=== PATIENT | female | born 1985 | race Caucasian/White ===

== ENCOUNTER 2019-09-27 11:12 | Emergency (ER) | payer SELFPAY ==
[2019-09-27 11:22] VITALS: BP 117/92; PULSE 91; RESP 20; TEMP 36.8; O2SAT 99; BMI 22.3
[2019-09-27 11:29] VITALS: BP 111/86; PULSE 90; RESP 17; O2SAT 98
--- NOTE | 2019-09-27 11:29 | PC.NURSE ---
Patient reports that she has been sick for 7 days. Patient states she has been vomiting, diarrhea, sinus pain, cough, weak, chills, hot flashes, and body aches. Patient reports that every time she eats she throws up. Patient states I think I had a seizure. Patient reports that she lost control of her muscles during this possible seizure.
--- NOTE | 2019-09-27 11:35 | XRR_ITS ---
PROCEDURE INFORMATION: Exam: XR Chest, 1 View Exam date and time: 09/27/2019 11:36 AM Age: 33 years old Clinical indication: Cough; Additional info: Cough/congestion TECHNIQUE: Imaging protocol: XR of the chest Views: 1 view. COMPARISON: CR Chest 2 views* [id number] 04/07/2019 11:20 PM FINDINGS: Lungs: Unremarkable. No consolidation. Pleural space: Unremarkable. No pleural effusion. No pneumothorax. Heart/Mediastinum: Unremarkable. No cardiomegaly. Bones/joints: Unremarkable. XR/XR chest 1V portable [id number] IMPRESSION: No acute findings.
[2019-09-27] MEDS: sodium chloride 0.9% 1,000 ML 999 ML IV (11:57)
[2019-09-27 12:06] LABS: Basophils # 0.1 10^3/uL (0.0-0.1); Basophils % 0.5 %; Eosinophils # 0.1 10^3/uL (0.0-0.8); Eosinophils % 0.8 %; Hematocrit 45.1 % (37.0-47.0); Hemoglobin 14.6 g/dL (11.5-15.3); Lymphocytes # 3.2 10^3/uL (0.8-4.8); Lymphocytes % 27.6 %; Mean Corpuscular HGB Conc 32.4 g/dL (30.0-36.0); Mean Corpuscular Hemoglobin 30.5 pg (28.0-34.0); Mean Corpuscular Volume 94.2 fL (81-99); Mean Platelet Volume 9.8 fL (7.4-10.4); Monocytes # 0.6 10^3/uL (0.2-0.9); Monocytes % 5.4 %; Neutrophils # 7.6 10^3/uL (1.8-7.7); Neutrophils % 65.4 %; Nucleated Red Blood Cells % 0 %; Platelet Count 264 10^3/cmm (130-400); Red Blood Count 4.79 10^6/uL (4.1-5.3); Red Cell Distribution Width 13.3 % (12.1-15.1); White Blood Count 11.6 10^3/uL (4.0-10.0)
[2019-09-27] MEDS: ondansetron 2 mg/ML SDV 2 mL 4 MG IVP (12:15)
[2019-09-27 12:21] LABS: Alanine Aminotransferase 13 U/L (0-33); Albumin Level 4.4 g/dL (3.5-5.2); Alkaline Phosphatase 61 IU/L (35-105); Aspartate Amino Transferase 19 U/L (0-32); Blood Urea Nitrogen 13 mg/dL (6-20); Calcium 10.3 mg/dL (8.5-10.5); Carbon Dioxide 25 mmol/L (22-29); Chloride 100 mmol/L (98-107); Globulin 3.4 g/dL (1.3-4.6); Glomerular Filtration Rate 142.1 mL/min (90-130); Glucose 103 mg/dL (74-109); Sodium 136 mmol/L (136-145); Total Bilirubin 0.2 mg/dL (0.15-1.2); Total Protein 7.8 g/dL (6.6-8.7)
--- NOTE | 2019-09-27 12:23 | W.ED.GENADLT ---
HPI - General Adult General: Chief complaint: General Medical Stated complaint: N/V/D-thinks she is having seizures Time Seen by Provider: 09/27/19 11:20 Source: patient Mode of arrival: ambulatory Limitations: no limitations History of Present Illness: HPI narrative: Patient is a 33-year-old female who presents to ED today for complaints of subjective fevers, chills, sore throat, sinus pain/pressure, productive cough, body aches, nausea with vomiting, and diarrhea. Patient states she is concerned for possible dehydration. Patient states over the past 2 days she has seemed to slightly improve however seems to vomit with anything she eats. She denies sick contacts. Denies blood in her vomit or stool. She denies abdominal pain. Onset (ago): day(s) Exacerbating factors: none Associated symptoms: Reports nausea and vomiting (2-3x daily; mainly dry heaving); Deny chest pain, dyspnea, headache(s), rash, palpitations or syncope Review of Systems Const: Reports: fever, chills, body aches and fatigue Eyes: Denies: change in vision, blurry vision, photophobia, eye discomfort or eye discharge ENMT: Reports: throat pain, painful swallowing, nasal congestion and facial/sinus pain; Denies: enlarged tonsils, swelling of lips/tongue, oral sores/lesions, ear pain, ear discharge, nasal discharge or post nasal drip Card: Denies: chest pain, palpitations, irregular heart rhythm, edema, lightheadedness, syncope, pre-syncope or shortness of breath when lying down Resp: Reports: productive cough and chest congestion; Denies: shortness of breath, wheezing, pain on inspiration or coughing up blood GI: Reports: nausea, vomiting (2-3x daily; mainly dry heaving) and diarrhea (2-3x daily); Denies: abdominal pain, vomiting blood, coffee grounds in vomit, difficulty swallowing, heartburn/indigestion, feeling full early, constipation, fecal incontinence, painful bowel movements, change in stool character, blood in stool or white/light colored stool : Denies: flank pain, difficulty urinating, painful urination, urinary frequency or urinary urgency Musc: Denies: neck pain or back pain Skin/Breast: Denies: rash Neuro: Denies: headache, numbness in extremities, weakness in extremities or changes in sensation All/Imm: Denies: facial swelling or seasonal allergies PFSH ED PFSH: Statuses (acute, chronic, etc) shown below reflect problem list status as previously entered and may not be historically accurate Social History Smoking and tobacco status: current every day smoker Female Reproductive History: Date of last menstrual period: 09/27/19 Physical Exam Const: COMMON NORMALS: no apparent distress, average body habitus, oriented x3, no limitations, alert and well nourished GENERAL APPEARANCE: cooperative ORIENTATION/CONSCIOUSNESS: Yes oriented to person, Yes oriented to place and Yes oriented to time HENMT: COMMON NORMALS: normocephalic, head/scalp atraumatic, external ears normal, EAC's normal, TM's normal bilaterally and external nose normal HEAD & SCALP: normocephalic and atraumatic FACE & SINUS: normal facial exam NOSE: external nose normal EXTERNAL EAR: Yes external ears normal EXTERNAL AUDITORY CANAL: EAC's normal TYMPANIC MEMBRANE: TM's normal bilaterally MOUTH: oral and palatal mucosa normal THROAT: posterior oropharynx normal, tonsils normal and uvula midline Eye: COMMON NORMALS: PERRL and EOMs intact bilaterally PUPIL: Yes PERRL Neck/C-Spine: COMMON NORMALS: full ROM, no lymphadenopathy, supple and no meningeal signs Chest: COMMONS NORMALS: inspection of chest normal Resp: COMMON NORMALS: normal respiratory effort and clear to auscultation bilaterally EFFORT & INSPECTION: Yes able to speak in complete sentences AUSCULTATION: clear to auscultation bilaterally Cardio: COMMON NORMALS: regular rate and regular rhythm RATE: regular rate RHYTHM: regular rhythm GI: COMMON NORMALS: normal to inspection, nondistended, normoactive bowel sounds, soft to palpation, non-tender, no hepatosplenomegaly and no masses PALPATION: Yes soft and Yes no hepatosplenomegaly : COMMON NORMALS: Yes no CVA tenderness BLADDER/KIDNEY EXAM: Yes no CVA tenderness Back/Pelvis: COMMON NORMALS: no CVA tenderness and thoracic and lumbar spine normal to inspection Extremity: COMMON NORMALS: normal to inspection Neuro: ASA COMA SCALE: document GCS findings Mcclure coma scale eye opening: Spontaneous Asa coma scale verbal response: Orientated Asa coma scale motor response: Obey commands Mcclure coma scale total score: 15 COMMON NORMALS: oriented x3, CN's II-XII intact bilaterally, moves all extremities, no focal motor deficits and no sensory deficits noted SENSORIUM/ORIENTATION: Yes alert, Yes oriented to person, Yes oriented to place and Yes oriented to time MENINGEAL SIGNS: Yes no meningeal signs Skin: COMMON NORMALS: no rashes or lesions noted GENERAL SKIN EXAM: no rashes or lesions noted Course Vital Signs: Vital signs: Vital Signs Temperature 98.3 F 09/27/19 11:22 Pulse Rate 90 09/27/19 11:29 Respiratory Rate 17 09/27/19 11:29 Blood Pressure 111/86 09/27/19 11:29 Pulse Oximetry 98 09/27/19 11:29 [facility] - General Adult Lab Data: Labs: Lab Results 09/27/19 09/27/19 09/27/19 Range/Units 11:49 11:57 11:57 WBC 11.6 H (4.0-10.0) 10^3/ uL RBC 4.79 (4.1-5.3) 10^6/u L Hgb 14.6 (11.5-15.3) g/dL Hct 45.1 (37.0-47.0) % MCV 94.2 (81-99) fL MCH 30.5 (28.0-34.0) pg MCHC 32.4 (30.0-36.0) g/dL RDW 13.3 (12.1-15.1) % Plt Count 264 (130-400) 10^3/c mm MPV 9.8 (7.4-10.4) fL Neut % (Auto) 65.4 % Lymph % (Auto) 27.6 % [place] % (Auto) 5.4 % Eos % (Auto) 0.8 % Baso % (Auto) 0.5 % Neut # (Auto) 7.6 (1.8-7.7) 10^3/u L Lymph # (Auto) 3.2 (0.8-4.8) 10^3/u L [place] # (Auto) 0.6 (0.2-0.9) 10^3/u L Eos # (Auto) 0.1 (0.0-0.8) 10^3/u L Baso # (Auto) 0.1 (0.0-0.1) 10^3/u L Nucleated RBC % (a uto) 0 % Nucleated RBCs # 0.0 /100WBC Sodium 136 (136-145) mmol/L Potassium 4.0 (3.5-5.1) mmol/L Chloride 100 (98-107) mmol/L Carbon Dioxide 25 (22-29) mmol/L Anion Gap 15.0 (5-19) BUN 13 (6-20) mg/dL Creatinine 0.5 (0.5-0.9) mg/dL GFR Calculation 142.1 H (90-130) mL/min Glucose 103 (74-109) mg/dL Calcium 10.3 (8.5-10.5) mg/dL Total Bilirubin 0.2 (0.15-1.2) mg/dL AST 19 (0-32) U/L ALT 13 (0-33) U/L Alkaline Phosphata se 61 (35-105) IU/L Total Protein 7.8 (6.6-8.7) g/dL Albumin 4.4 (3.5-5.2) g/dL Globulin 3.4 (1.3-4.6) g/dL HCG, Qual (Negative) Influenza Type A A g Negative (Negative) POC Influenza B Ag Negative (Negative) 09/27/19 Range/Units 11:57 WBC (4.0-10.0) 10^3/ uL RBC (4.1-5.3) 10^6/u L Hgb (11.5-15.3) g/dL Hct (37.0-47.0) % MCV (81-99) fL MCH (28.0-34.0) pg MCHC (30.0-36.0) g/dL RDW (12.1-15.1) % Plt Count (130-400) 10^3/c mm MPV (7.4-10.4) fL Neut % (Auto) % Lymph % (Auto) % [place] % (Auto) % Eos % (Auto) % Baso % (Auto) % Neut # (Auto) (1.8-7.7) 10^3/u L Lymph # (Auto) (0.8-4.8) 10^3/u L [place] # (Auto) (0.2-0.9) 10^3/u L Eos # (Auto) (0.0-0.8) 10^3/u L Baso # (Auto) (0.0-0.1) 10^3/u L Nucleated RBC % (a uto) % Nucleated RBCs # /100WBC Sodium (136-145) mmol/L Potassium (3.5-5.1) mmol/L Chloride (98-107) mmol/L Carbon Dioxide (22-29) mmol/L Anion Gap (5-19) BUN (6-20) mg/dL Creatinine (0.5-0.9) mg/dL GFR Calculation (90-130) mL/min Glucose (74-109) mg/dL Calcium (8.5-10.5) mg/dL Total Bilirubin (0.15-1.2) mg/dL AST (0-32) U/L ALT (0-33) U/L Alkaline Phosphata se (35-105) IU/L Total Protein (6.6-8.7) g/dL Albumin (3.5-5.2) g/dL Globulin (1.3-4.6) g/dL HCG, Qual Negative (Negative) Influenza Type A A g (Negative) POC Influenza B Ag (Negative) Imaging Data^: CXR: Radiologist's impression: [address] [address] XRay Report Signed Patient: Susy Pierre Unit #: [id number] : [id number] Age/Sex: 33 / F ADM Date: 09/27/19 Loc: ER Room/Bed: Attending Dr: Ordering Provider/Ordering MD: Teetee Berman Date of Service: 09/27/19 Procedure(s): XR chest 1V portable [id number] Accession Number(s): [id number] Report Number: [id number] PROCEDURE INFORMATION: Exam: XR Chest, 1 View Exam date and time: 09/27/2019 11:36 AM Age: 33 years old Clinical indication: Cough; Additional info: Cough/congestion TECHNIQUE: Imaging protocol: XR of the chest Views: 1 view. COMPARISON: CR Chest 2 views* [id number] 04/07/2019 11:20 PM FINDINGS: Lungs: Unremarkable. No consolidation. Pleural space: Unremarkable. No pleural effusion. No pneumothorax. Heart/Mediastinum: Unremarkable. No cardiomegaly. Bones/joints: Unremarkable. XR/XR chest 1V portable [id number] IMPRESSION: No acute findings. Dictated By: Adriel Hong Signed By: Adriel Hong Signed Date/Time: 09/27/191204 DD/ 05 Discharge Plan Discharge Patient Disposition: Home, Self-Care Clinical Impression: Viral illness Condition: Stable Prescriptions: New Zofran 4 mg tablet 4 mg PO Q6H PRN (Reason: nausea and vomiting) Qty: 14 RF: 0 No Action Multiple Vitamins Tablet 1 tab PO DAILY RF: 0 Discharge Orders: Discharge Order (Routine); Ordered 09/27/19 Ordered By: Teetee Berman Referrals: Jama Gamble MD [Family Provider] - Discharge Diet: Advance as tolerated Discharge Activity: Increase activity as tolerated Activity Restrictions/Additional Instructions: Follow up with primary care if symptoms continue past another 3-5 days. Coding Level of Care Code ED Home Care Scheduler for Fernanda Poon
[2019-09-27 12:24] LABS: HCG, Serum Qual Negative (Negative)
[2019-09-27 12:38] LABS: Influenza A by IFA Negative (Negative)
[2019-09-27 12:39] LABS: Influenza B by IFA Negative (Negative)
[2019-09-27 13:06] VITALS: BP 113/84; PULSE 82; RESP 18; O2SAT 98
== END 2019-09-27 13:11 | disposition home or self-care (01) ==
PROVIDERS: Emergency Provider Physician Assistant; Family Provider Family Medicine
DX: B34.9 Viral infection, unspecified (principal); F17.210 Nicotine dependence, cigarettes, uncomplicated
CPT/HCPCS: 71045; 80053; 84703; 85025; 87804; 96360; 96361; 96374; 99282; 99283; J2405; J7030

== ENCOUNTER 2019-11-14 11:03 | Emergency (ER) | payer SELFPAY ==
[2019-11-14 11:04] VITALS: BP 143/81; PULSE 71; RESP 17; TEMP 36.9; O2SAT 97; BMI 24.0
--- NOTE | 2019-11-14 11:11 | W.ED.ABDPA2 ---
HPI - Abdominal Pain General: Chief Complaint: Abdominal Pain Stated Complaint: swelling in the abdomen Time Seen by Provider: 11/14/19 11:10 Source: patient Mode of arrival: ambulatory Limitations: no limitations History of Present Illness: HPI narrative: Patient comes in with complaints of bloating and movement in her abdomen. Patient reports that movement is in her upper abdomen and it feels like rolling movement. Patient has a history of a tubal ligation. Patient reports some mild bowel tenderness. Patient appears well. Patient appears in no pain. MD elicited complaint: abdominal pain Associated Symptoms: Reports nausea Related Data: Date of Last Menstrual Period: 09/27/19 Review of Systems General: Reports: 10 or more systems reviewed and unremarkable except in HPI and below GI: Reports: abdominal pain and nausea : Reports: irregular period PFSH ED PFSH: Social History Smoking and tobacco status: current every day smoker Female Reproductive History: Date of last menstrual period: 09/27/19 Physical Exam Const: COMMON NORMALS: no apparent distress and oriented x3 GENERAL APPEARANCE: cooperative HENMT: COMMON NORMALS: normocephalic, external ears normal, EAC's normal, TM's normal bilaterally and external nose normal HEAD & SCALP: normal to inspection and normocephalic FACE & SINUS: normal facial exam NOSE: external nose normal GENERAL EAR: hearing not grossly impaired EXTERNAL EAR: Yes external ears normal EXTERNAL AUDITORY CANAL: EAC's normal TYMPANIC MEMBRANE: TM's normal bilaterally MOUTH: oral and palatal mucosa normal THROAT: posterior oropharynx normal Eye: COMMON NORMALS: PERRL and EOMs intact bilaterally PUPIL: Yes PERRL Neck/C-Spine: COMMON NORMALS: full ROM and no lymphadenopathy Lymph: LYMPHATIC: no lymphedema noted Chest: COMMONS NORMALS: inspection of chest normal and palpation of chest normal Resp: COMMON NORMALS: normal respiratory effort and clear to auscultation bilaterally AUSCULTATION: clear to auscultation bilaterally Cardio: COMMON NORMALS: regular rate and regular rhythm RATE: regular rate RHYTHM: regular rhythm GI: COMMON NORMALS: normal to inspection, nondistended, normoactive bowel sounds and soft to palpation PALPATION: Yes soft, Yes tender (mild), No guarding and No rigid : COMMON NORMALS: Yes no CVA tenderness BLADDER/KIDNEY EXAM: Yes no CVA tenderness Back/Pelvis: COMMON NORMALS: no CVA tenderness and thoracic and lumbar spine normal to inspection Extremity: COMMON NORMALS: normal to inspection GENERAL: No edema Neuro: COMMON NORMALS: oriented x3, moves all extremities and no focal motor deficits Psych: COMMON NORMALS: mental status grossly normal and cooperative Skin: COMMON NORMALS: no rashes or lesions noted GENERAL SKIN EXAM: no rashes or lesions noted Course Vital Signs: Vital signs: Vital Signs Temperature 98.5 F 11/14/19 11:04 Pulse Rate 69 11/14/19 12:49 Respiratory Rate 17 11/14/19 11:04 Blood Pressure 111/77 11/14/19 12:49 Pulse Oximetry 99 11/14/19 12:49 MDM - Abdominal Pain MDM Narrative: Medical decision making narrative: Patient comes in today with some abdominal discomfort. On exam patient's abdomen is soft with some mild tenderness diffuse throughout the whole abdomen. Bowel sounds are present not hyperactive. Vital signs are normal. Skin is warm and dry and color is pink. Differential diagnosis includes constipation, ascites, hepatomegaly, gastroenteritis, colitis, . Laboratory values were normal. Patient was not . X-ray noted no significant abnormalities except a large amount of stool in the bowel. Reviewed exam with patient recommendations for treatment for constipation. Encourage plenty of fluids and follow-up as needed. Lab Data: Labs: Lab Results 11/14/19 11/14/19 11/14/19 Range/Units 11:33 11:33 11:33 WBC 9.3 (4.0-10.0) 10^3/ uL RBC 4.07 L (4.1-5.3) 10^6/u L Hgb 13.2 (11.5-15.3) g/dL Hct 40.1 (37.0-47.0) % MCV 98.5 (81-99) fL MCH 32.4 (28.0-34.0) pg MCHC 32.9 (30.0-36.0) g/dL RDW 14.8 (12.1-15.1) % Plt Count 253 (130-400) 10^3/c mm MPV 9.8 (7.4-10.4) fL Neut % (Auto) 62.5 % Lymph % (Auto) 27.5 % [place] % (Auto) 7.6 % Eos % (Auto) 1.7 % Baso % (Auto) 0.5 % Neut # (Auto) 5.8 (1.8-7.7) 10^3/u L Lymph # (Auto) 2.5 (0.8-4.8) 10^3/u L [place] # (Auto) 0.7 (0.2-0.9) 10^3/u L Eos # (Auto) 0.2 (0.0-0.8) 10^3/u L Baso # (Auto) 0.1 (0.0-0.1) 10^3/u L Nucleated RBC % (a uto) 0 % Nucleated RBCs # 0.0 /100WBC Sodium 141 (136-145) mmol/L Potassium 3.9 (3.5-5.1) mmol/L Chloride 105 (98-107) mmol/L Carbon Dioxide 23 (22-29) mmol/L Anion Gap 16.9 (5-19) BUN 5 L (6-20) mg/dL Creatinine 0.5 (0.5-0.9) mg/dL GFR Calculation 141.2 H (90-130) mL/min Glucose 109 (65-115) mg/dL Calculated Osmolal ity 288 (285-295) mOsm/k g Calcium 9.2 (8.5-10.5) mg/dL Total Bilirubin 0.3 (0.15-1.2) mg/dL AST 48 H (0-32) U/L ALT 83 H (0-33) U/L Alkaline Phosphata se 55 (35-105) IU/L Total Protein 7.2 (6.6-8.7) g/dL Albumin 4.1 (3.5-5.2) g/dL Globulin 3.1 (1.3-4.6) g/dL Lipase 17 (13-60) U/L HCG, Qual Negative (Negative) Discharge Plan Discharge Patient Disposition: Home, Self-Care Clinical Impression: Constipation Qualifiers: Constipation type: unspecified constipation type Qualified Code(s): K59.00 - Constipation, unspecified Condition: Stable Prescriptions: New magnesium citrate Solution 300 ml PO DAILY PRN (Reason: constipation) Qty: 296 RF: 0 Referrals: Jama Gamble MD [Family Provider] - Penelope Almanza FNP [Primary Care Provider] - Discharge Diet: Usual diet Discharge Activity: Increase activity as tolerated Patient Instructions: Constipation (ED) Activity Restrictions/Additional Instructions: Drink plenty of water Activity as tolerated Return to ER for high fever or worsening pain Follow-up with primary care as needed Coding Level of Care Code ED Funeral Prearrangement Counselor for Fernanda Fwd Exam Comprehensive
[2019-11-14 12:01] LABS: Basophils # 0.1 10^3/uL (0.0-0.1); Basophils % 0.5 %; Eosinophils # 0.2 10^3/uL (0.0-0.8); Eosinophils % 1.7 %; Hematocrit 40.1 % (37.0-47.0); Hemoglobin 13.2 g/dL (11.5-15.3); Lymphocytes # 2.5 10^3/uL (0.8-4.8); Lymphocytes % 27.5 %; Mean Corpuscular HGB Conc 32.9 g/dL (30.0-36.0); Mean Corpuscular Hemoglobin 32.4 pg (28.0-34.0); Mean Corpuscular Volume 98.5 fL (81-99); Mean Platelet Volume 9.8 fL (7.4-10.4); Monocytes # 0.7 10^3/uL (0.2-0.9); Monocytes % 7.6 %; Neutrophils # 5.8 10^3/uL (1.8-7.7); Neutrophils % 62.5 %; Nucleated Red Blood Cells % 0 %; Platelet Count 253 10^3/cmm (130-400); Red Blood Count 4.07 10^6/uL (4.1-5.3); Red Cell Distribution Width 14.8 % (12.1-15.1); White Blood Count 9.3 10^3/uL (4.0-10.0)
[2019-11-14 12:21] LABS: HCG, Serum Qual Negative (Negative)
[2019-11-14 12:26] LABS: Alanine Aminotransferase 83 U/L (0-33); Albumin Level 4.1 g/dL (3.5-5.2); Alkaline Phosphatase 55 IU/L (35-105); Anion Gap 16.9 (5-19); Aspartate Amino Transferase 48 U/L (0-32); Blood Urea Nitrogen 5 mg/dL (6-20); Calcium 9.2 mg/dL (8.5-10.5); Carbon Dioxide 23 mmol/L (22-29); Chloride 105 mmol/L (98-107); Creatinine Clr Calc Pharmacy 145.7147; Globulin 3.1 g/dL (1.3-4.6); Glomerular Filtration Rate 141.2 mL/min (90-130); Glucose 109 mg/dL (65-115); Lipase 17 U/L (13-60); Osmolality Calculated 288 mOsm/kg (285-295); Potassium 3.9 mmol/L (3.5-5.1); Sodium 141 mmol/L (136-145); Total Bilirubin 0.3 mg/dL (0.15-1.2); Total Protein 7.2 g/dL (6.6-8.7)
--- NOTE | 2019-11-14 12:28 | XR_ITS ---
WS: [id number] XR acute abdomen series [id number] REASON FOR EXAM: abd pain FINDINGS: The heart mediastinum were normal. The lung goldsmith are clear there is no pneumonia seen. AP upright abdomen shows no pneumoperitoneum. Scattered gas and fecal stasis. Client previous Colace cystectomy. XR/XR acute abdomen series [id number] IMPRESSION: Negative chest Nonspecific abdominal findings.
[2019-11-14 12:49] VITALS: BP 111/77; PULSE 69; O2SAT 99
[2019-11-14 13:11] LABS: Add Urine Microscopic? NO
[2019-11-14 13:17] LABS: Bilirubin Urine Neg (NEGATIVE); Blood Urine Neg (Negative); Glucose Urine UA Norm (Normal); Ketones Urine Negative (Negative); Leukocyte Esterase Urine Negative (Negative); Nitrate Urine Negative (Negative); Protein Urine Neg (Negative); Specific Gravity, Urine 1.005 (1.005-1.030); Urine Appearance Clear (CLEAR); Urine Color Yellow (Yellow); Urobilinogen Urine Norm (Negative); pH Urine 7 (5-7)
[2019-11-14 13:54] VITALS: BP 128/72; PULSE 75; RESP 16; TEMP 36.6; O2SAT 97
== END 2019-11-14 13:30 | disposition home or self-care (01) ==
PROVIDERS: Emergency Provider Nurse Practitioner Family; Family Provider Family Medicine; PCP Nurse Practitioner
DX: K59.00 Constipation, unspecified (principal); F17.200 Nicotine dependence, unspecified, uncomplicated
CPT/HCPCS: 12345; 36415; 74022; 80053; 81003; 83690; 84703; 85025; 99282; 99283; A9270

== ENCOUNTER 2020-03-04 11:38 | Emergency (ER) | payer SELFPAY ==
[2020-03-04 11:42] VITALS: BP 127/75; PULSE 85; RESP 14; TEMP 36.8; O2SAT 98; BMI 25.7
[2020-03-04 12:42] LABS: Rapid Strep A Test Positive (Negative)
--- NOTE | 2020-03-04 14:06 | W.ED.URI ---
HPI - URI/Sore Throat General: Chief Complaint: Upper Respiratory Infection Stated Complaint: SORE THROAT Time Seen by Provider: 03/04/20 14:06 Source: patient Mode of arrival: ambulatory Limitations: no limitations History of Present Illness: HPI Narrative: Patient is a 34-year-old female who presents to ED today with complaint of sore throat over the past 2 days. She is not been running fevers. She has no other complaints at this time. She has been eating/drinking/swallowing normally. No muffled voice. MD elicited complaint: sore throat Consistency: constant Able to tolerate fluids by mouth: Yes Exacerbating factors: swallowing Relieving factors: nothing Associated symptoms: Reports no associated symptoms; Deny abdominal pain, chills, chest pain, ear or mastoid pain, fever(s), headache(s), nasal congestion, nausea, sinus pain or vomiting Review of Systems Const: Denies: fever(s), chills, body aches or fatigue Eyes: Denies: change in vision, blurry vision, photophobia, eye discomfort or eye discharge ENMT: Reports: throat pain, enlarged tonsils and odynophagia; Denies: uvular edema, swelling of lips/tongue, oral sores, ear or mastoid pain, ear discharge, nasal discharge, nasal congestion, post nasal drip or sinus pain Card: Denies: chest pain Resp: Denies: productive cough or non-productive cough GI: Denies: abdominal pain, nausea or vomiting Musc: Denies: neck pain Skin/Breast: Denies: rash Neuro: Denies: headache(s) All/Imm: Denies: facial swelling or seasonal rhinorrhea PFS ED PFSH: Social History Smoking and tobacco status: current every day smoker Female Reproductive History: Date of last menstrual period: 09/27/19 Physical Exam Const: COMMON NORMALS: no acute distress, average body habitus, patient oriented x3, no limitations, healthy appearing, alert and well nourished HENMT: COMMON NORMALS: normocephalic, atraumatic, hearing grossly normal bilaterally, external ears normal, EAC's normal, TM's normal bilaterally, Normal external nose present, Normal nasal mucous membranes and turbinates present and moist oral mucous membranes HEAD & SCALP: normal to inspection, normocephalic and atraumatic FACE & SINUS: normal facial exam and sinuses nontender NOSE: Normal external nose present and Normal nasal mucous membranes and turbinates present EXTERNAL EAR: Yes external ears normal EXTERNAL AUDITORY CANAL: EAC's normal TYMPANIC MEMBRANE: TM's normal bilaterally TEETH & GINGIVA: Yes dentures THROAT: abnormal tonsil bilateral erythema and exudates; no peritonsillar mass and no uvular edema Eye: COMMON NORMALS: Equal, round and reactive pupils present, EOMs intact bilaterally and conjunctivae normal CONJUNCTIVA: Yes conjunctivae normal PUPIL: Yes Equal, round and reactive pupils present Neck/C-Spine: COMMON NORMALS: no lymphadenopathy Resp: COMMON NORMALS: normal respiratory effort and clear to auscultation bilaterally AUSCULTATION: clear to auscultation bilaterally Cardio: COMMON NORMALS: regular rate and regular rhythm RATE: regular rate RHYTHM: regular rhythm Neuro: COMMON NORMALS: patient oriented x3 SENSORIUM/ORIENTATION: Yes alert Skin: COMMON NORMALS: no rashes or lesions noted GENERAL SKIN EXAM: no rashes or lesions noted Course Vital Signs: Vital signs: Vital Signs Temperature 98.3 F 03/04/20 11:42 Pulse Rate 85 03/04/20 11:42 Respiratory Rate 14 03/04/20 11:42 Blood Pressure 127/75 03/04/20 11:42 Pulse Oximetry 98 03/04/20 11:42 MDM - URI/Sore Throat Lab Data: Labs: Lab Results 03/04/20 Range/Units 11:49 Group A Strep Rapi d Positive H (Negative) Discharge Plan Discharge Patient Disposition: Home, Self-Care Clinical Impression: Strep tonsillitis Condition: Stable Prescriptions: No Action magnesium citrate Solution 300 ml PO DAILY PRN (Reason: constipation) Qty: 296 RF: 0 Discharge Orders: Discharge Order (Routine); Ordered 03/04/20 Ordered By: Teetee Berman Referrals: Jama Gamble MD [Family Provider] - Penelope Almanza FNP [Primary Care Provider] - Patient Instructions: Strep Throat (ED), Tonsillitis (ED), Strep Throat - Adult Activity Restrictions/Additional Instructions: Please follow-up with primary care in 3 to 5 days if symptoms do not seem to be improving. Return to the emergency department for worsening pain, difficulty swallowing, or any other concerns you may have. Coding Level of Care Code ED Control Room Supervisor for Fernanda Poon
[2020-03-04] MEDS: penicillin g (L-A) 1,200,000 unit/2 mL Syr 1200000 UNIT IM (14:22)
[2020-03-04 14:23] VITALS: RESP 18
== END 2020-03-04 14:30 | disposition home or self-care (01) ==
PROVIDERS: Family Medicine; Emergency Provider Physician Assistant; PCP Nurse Practitioner
DX: J03.00 Acute streptococcal tonsillitis, unspecified (principal); F17.210 Nicotine dependence, cigarettes, uncomplicated
CPT/HCPCS: 12345; 87880; 96372; 99282; 99283; J0561

== ENCOUNTER 2021-05-07 00:41 | Emergency (ER) | payer SELFPAY ==
[2021-05-07 00:48] VITALS: BP 129/84; PULSE 86; RESP 18; TEMP 36.9; O2SAT 97; BMI 29.2
--- NOTE | 2021-05-07 00:56 | ED_ITS ---
HPI - General Adult General: Chief complaint: General Medical Stated complaint: THROAT PAIN Time Seen by Provider: 05/07/21 00:56 History of Present Illness: HPI narrative: 35-year-old female comes in today with sore throat. Patient reports mainly the left side of her throat is sore and radiating into her left ear. Patient was positive for strep pharyngitis in February. Patient was positive for Covid in March. Patient appears mildly unwell but not toxic. Patient appears moderate pain. Review of Systems General: Reports: 10 or more systems reviewed and unremarkable except in HPI and below ENMT: Reports: throat pain PFSH ED PFSH: Social History Smoking and tobacco status: current every day smoker Female Reproductive History: Date of last menstrual period: 04/09/21 Physical Exam Const: COMMON NORMALS: no acute distress and patient oriented x3 GENERAL APPEARANCE: cooperative HENMT: COMMON NORMALS: normocephalic and Normal external nose present HEAD & SCALP: normal to inspection and normocephalic NOSE: Normal external nose present TYMPANIC MEMBRANE: TM abnormal TM laterality: left Details: erythematous and retracted MOUTH: Normal oral and palatal mucosa present THROAT: posterior oropharynx abnormal erythema Eye: GENERAL EYE: appearance normal, both eyes and all related structures Neck/C-Spine: COMMON NORMALS: full ROM Lymph: LYMPHATIC: no lymphadenopathy noted Chest: COMMONS NORMALS: normal inspection of the chest Resp: COMMON NORMALS: normal respiratory effort EFFORT & INSPECTION: Yes able to speak in complete sentences Cardio: COMMON NORMALS: regular rate and regular rhythm RATE: regular rate RHYTHM: regular rhythm GI: COMMON NORMALS: non-tender Extremity: COMMON NORMALS: normal to inspection Neuro: COMMON NORMALS: patient oriented x3 and moves all extremities Psych: COMMON NORMALS: mental status grossly normal and cooperative Skin: COMMON NORMALS: no rashes or lesions noted GENERAL SKIN EXAM: no rashes or lesions noted Course Vital Signs: Vital signs: Vital Signs Temperature 98.4 F 05/07/21 00:48 Pulse Rate 86 05/07/21 00:48 Respiratory Rate 18 05/07/21 00:48 Blood Pressure 129/84 05/07/21 00:48 Pulse Oximetry 97 05/07/21 00:48 MDM - General Adult MDM Narrative: Medical decision making narrative: Patient comes in with sore throat for 2 days. Patient reported tonight the pain was worse. Patient was able to get control of pain with Tylenol ibuprofen. Patient has a history of strep throat in February. Patient was concerned she may be getting strep throat back again. On exam posterior pharynx is erythematous. There is some mild tonsillar swelling on the left. Left tympanic membrane is erythematous to also. Differential diagnosis includes upper respiratory infection, bacterial pharyngitis, strep pharyngitis. Strep test was negative. We went ahead and gave patient 10 mg of dexamethasone IM to help with pain and inflammation. Patient was given 1 hydrocodone tablet in the ER for pain. Patient then was sta rted on clindamycin 300 mg twice a day for the next 7 days. Encourage plenty of fluids and follow-up with primary care or return to the ER for worsening symptoms. Patient did have a culture done because of her negative strep test. Lab Data: Labs: Lab Results 05/07/21 Range/Units 00:55 Group A Strep Rapi d Negative (Negative) Discharge Plan Discharge Patient Disposition: Home Clinical Impression: Pharyngitis Qualifiers: Pharyngitis/tonsillitis etiology: unspecified etiology Qualified Code(s): J02.9 - Acute pharyngitis, unspecified Condition: Stable Prescriptions: New clindamycin HCl 300 mg capsule 300 mg PO BID 7 Days Qty: 14 RF: 0 No Action magnesium citrate Solution 300 ml PO DAILY PRN (Reason: constipation) Qty: 296 RF: 0 Discharge Orders: Discharge ED (Routine); Ordered 05/07/21 Ordered By: Guanako Hernandez Referrals: Penelope Almanza FNP [Primary Care Provider] - Discharge Diet: Usual diet Discharge Activity: Increase activity as tolerated Patient Instructions: Pharyngitis (ED), Opioid Safety Activity Restrictions/Additional Instructions: Take antibiotics as directed. Drink plenty of water with medication. Follow-up with primary care as needed. Return to the ER for new concerns. Coding Level of Care Code ED Sex Crimes Detective for Fernanda Poon Exam Comprehensive
[2021-05-07 01:07] LABS: Rapid Strep A Test Negative (Negative)
[2021-05-07] MEDS: HYDROcodone-acetaminophen 7.5-325 mg Tablet 1 TAB PO (01:09)
[2021-05-07] MEDS: dexamethasone 10 mg/mL INJ IM (01:09)
[2021-05-07 01:13] VITALS: BP 110/69; PULSE 86; RESP 18; O2SAT 96
[2021-05-07] MEDS: clindamycin 150 mg Capsule 300 MG PO (01:21)
[2021-05-07 01:25] VITALS: BP 110/69; PULSE 88; O2SAT 97
== END 2021-05-07 01:25 | disposition home or self-care (01) ==
PROVIDERS: Emergency Provider Nurse Practitioner Family; PCP Nurse Practitioner
DX: J02.9 Acute pharyngitis, unspecified (principal); F17.210 Nicotine dependence, cigarettes, uncomplicated
CPT/HCPCS: 87081; 87880; 96372; 99283; J1100

== ENCOUNTER 2024-07-07 15:34 | Emergency (ER) | payer SELFPAY ==
--- NOTE | 2024-07-07 15:36 | ECG_ITS ---
[facility] Test Date: 2024-07-07 Pat Name: Susy Pierre Department: Room: Gender: Female [employer]: : 1985 Requested By: Jason Fournier Order Number: [id number] Jaimie MD: Merary Nieves M.D. Measurements Intervals [place] Rate: 84 P: 58 NH: 140 QRS: 42 QRSD: 82 T: 64 QT: 360 QTc: 426 Interpretive Statements SINUS RHYTHM Compared to ECG 04/07/2019 23:34:04 No significant changes Electronically Signed On 07-10-2024 21:16:12 NEURORADIOLOGIST by Merary Nieves M.D. [email or web address]
[2024-07-07 15:42] VITALS: BP 116/74; PULSE 90; RESP 18; TEMP 36.8; O2SAT 99; BMI 22.3
--- NOTE | 2024-07-07 18:19 | CTR_ITS ---
PROCEDURE INFORMATION: Exam: CT Head Without Contrast Exam date and time: 07/07/2024 6:26 PM Age: 38 years old Clinical indication: Pain; Headache not specified; Additional info: Headache, left arm tingling TECHNIQUE: Imaging protocol: Computed tomography of the head without contrast. Axial, coronal and sagittal reformatted images were created and reviewed. Radiation optimization: All CT scans at this facility use at least one of these dose optimization techniques: automated exposure control; mA and/or kV adjustment per patient size (includes targeted exams where dose is matched to clinical indication); or iterative reconstruction. COMPARISON: CT cervical spin wo con* [id number] 07/07/2024 6:26 PM RADIATION DOSE METRICS: Total DLP (mGy-cm): 836.9 FINDINGS: Brain: No CT evidence of acute intracranial hemorrhage or acute territorial infarction. No significant mass effect or midline shift. Basal cisterns patent. Cerebral ventricles: Normal in size and configuration. Paranasal sinuses: Unremarkable. No fluid levels. Mastoid air cells: Grossly unremarkable. Bones: Unremarkable. No acute fracture. Soft tissues: Grossly unremarkable. CT/CT head wo con* [id number] IMPRESSION: No CT evidence of acute intracranial pathology.
--- NOTE | 2024-07-07 18:19 | CTR_ITS ---
PROCEDURE INFORMATION: Exam: CT Cervical Spine Without Contrast Exam date and time: 07/07/2024 6:26 PM Age: 38 years old Clinical indication: Prior surgery; Surgery date: 6+ months; Surgery type: Headache/neck pain wo recent trauma. Mass removed from neck at age 14. ; Additional info: Left arm numbness TECHNIQUE: Imaging protocol: Computed tomography of the cervical spine without contrast. Axial, coronal and sagittal reformatted images were created and reviewed. Radiation optimization: All CT scans at this facility use at least one of these dose optimization techniques: automated exposure control; mA and/or kV adjustment per patient size (includes targeted exams where dose is matched to clinical indication); or iterative reconstruction. COMPARISON: CT head wo con* [id number] 07/07/2024 6:26 PM RADIATION DOSE METRICS: Total DLP (mGy-cm): 836.9 FINDINGS: Bones: Straightening of the normal cervical lordosis. No CT evidence of acute fracture, dislocation or subluxation. Alignment anatomic. Vertebral body heights maintained. Mild multilevel spondylosis without significant spinal canal or neural foraminal stenosis. Lungs: Biapical pleural thickening and paraseptal emphysematous change. Soft tissues: Grossly unremarkable. CT/CT cervical spin wo con* [id number] IMPRESSION: 1. No CT evidence of acute cervical spine traumatic injury. 2. Additional findings, as above.
--- NOTE | 2024-07-07 18:24 | ED_ITS ---
HPI - Arrhythmia/Palpitations 2 General: Chief Complaint: Arrhythmia/Palpitations Stated Complaint: heart racing (2xmonths) Time Seen by Provider: 07/07/24 17:42 History of Present Illness: 38-year-old female who presents emergenc y room with left arm pain and palpitations. This been going on for over a month now. Was worse today. No chest pain. No altered mental status. No fevers. No cough. No abdominal pain. No nausea or vomiting. Related Data Previous Rx's Medication Instructions Recorded magnesium citrate 300 ml PO DAILY PRN constipation 11/14/19 #296 mL cyclobenzaprine 10 mg tablet 10 mg PO Q8H PRN muscle spasm #20 07/07/24 tabs dexamethasone 6 mg tablet 6 mg PO DAILY 5 days #5 tabs 07/07/24 Allergies Allergy/AdvReac Type Severity Reaction Status Date / Time No Known Allergies Allergy Verified 07/07/24 15:49 Review of Systems 2 Narrative: Constitutional symptoms: Negative except as documented in HPI. Skin symptoms: Negative except as documented in HPI. Eye symptoms: Negative except as documented in HPI. ENMT symptoms: Negative except as documented in HPI. Respiratory symptoms: Negative except as documented in HPI. Cardiovascular symptoms: Negative except as documented in HPI. Gastrointestinal symptoms: Negative except as documented in HPI. Genitourinary symptoms: Negative except as documented in HPI. Musculoskeletal symptoms: Negative except as documented in HPI. Neurologic symptoms: Negative except as documented in HPI. Psychiatric symptoms: Negative except as documented in HPI. Endocrine symptoms: Negative except as documented in HPI. PFSH ED 2 PFSH: Social History Smoking and tobacco/nicotine status: current every day tobacco/nicotine user Physical Exam 2 Narrative: EXAM NARRATIVE: General: Alert, no acute distress. Skin: Warm, dry. Head: Normocephalic, atraumatic. Neck: Supple, trachea midline. Eye: Extraocular movements are intact. Ears, nose, mouth and throat: mucosa moist. Cardiovascular: Regular, Normal peripheral perfusion. Respiratory: Lungs are clear to auscultation, respirations are non-labored, breath sounds are equal, Symmetrical chest wall expansion. Gastrointestinal: Soft, Nontender, Non distended Musculoskeletal: Normal ROM, no deformity. Neurological: Alert and oriented, No focal neurological deficit observed. Psychiatric: Cooperative, appropriate mood & affect. Course 2 Vital Signs: Vital signs: Vital Signs Temperature 98.2 F 07/07/24 15:42 Pulse Rate 74 07/07/24 19:30 Respiratory Rate 17 07/07/24 19:30 Blood Pressure 108/62 07/07/24 19:30 Pulse Oximetry 98 07/07/24 19:30 Oxygen Delivery Me thod Room Air 07/07/24 18:49 MDM - Arrhythmia/Palpitations Medical Decision Making Medical decision making: Differential diagnosis including but not limited to and based on the above HPI, review of systems and physical exam: Seems to be having a radiculopathy in her left arm. Checking head and neck CTs. Basic lab work. Rule out cardiac events. Cardiac monitoring and an EKG. Orders placed to evaluate differential diagnosis based on the above differential, HPI and physical exam EKG: Time 1540. Rate 84. Normal sinus rhythm, No ST-T changes, no ectopy, normal IL & QRS intervals, This was reviewed and interpreted by the ER physician 1550 CT of the cervical spine: No fracture. Good alignment. No step-offs. This was reviewed and interpreted by myself the emergency room physician. I also reviewed the radiologist report. CT head: No acute intracranial process. no intracranial hemorrhage, no evidence of infarct. no evidence of acute fracture.This was reviewed and interpreted by myself the ER physician. Lab Review: Laboratory results were reviewed and interpreted by myself the emergency room physician. Lab work is completely unremarkable. No leukocytosis. No anemia. No renal failure. Cardiac markers normal. I reviewed the patient's medical record. Reexamination: Patient remained stable. No increased work of breathing. No altered mental status. No focal motor deficits. Assessment and plan: - Discharged home - Discussed plan with patient. Answered any questions. - Evaluation and treatment of this problem were appropriate in the emergency setting. Lab Data 07/07/24 18:20 07/07/24 18:20 Radiology Impressions Cervical Spine CT 07/07/24 18:[address]: 1[address] evidence of acute cervical spine traumatic injury. 2. Additional findings, as above. Head CT 07/07/24 18:19 IMPRESSION: No CT evidence of acute intracranial pathology. Laboratory Results WBC 11.35 10^3/uL (3.29-11.43) 07/07/24 18:20 RBC 4.05 10^6/uL (3.85-5.65) 07/07/24 18:20 Hgb 13.10 g/dL (11.27-16.99) 07/07/24 18:20 Hct 39.3 % (36-47) 07/07/24 18:20 MCV 97.0 fl (85-98) 07/07/24 18:20 MCH 32.3 pg (27-33) 07/07/24 18:20 MCHC 33.3 g/dL (30-55) 07/07/24 18:20 RDW 13.2 % (12.1-15.1) 07/07/24 18:20 Plt Count 232 10^3/cmm (157-399) 07/07/24 18:20 MPV 9.6 fL (7.4-10.4) 07/07/24 18:20 Neut % (Auto) 54.4 % 07/07/24 18:20 Lymph % (Auto) 36.8 % 07/07/24 18:20 Ward % (Auto) 7.0 % 07/07/24 18:20 Eos % (Auto) 1.2 % 07/07/24 18:20 Baso % (Auto) 0.4 % 07/07/24 18:20 Neut # (Auto) 6.17 10^3/uL (1.8-7.7) 07/07/24 18:20 Lymph # (Auto) 4.2 10^3/uL (0.8-4.8) 07/07/24 18:20 Ward # (Auto) 0.8 10^3/uL (0.2-0.9) 07/07/24 18:20 Eos # (Auto) 0.1 10^3/uL (0.0-0.8) 07/07/24 18:20 Baso # (Auto) 0.0 10^3/uL (0.0-0.1) 07/07/24 18:20 Nucleated RBC % (auto) 0 % 07/07/24 18:20 Nucleated RBCs # 0.0 /100WBC 07/07/24 18:20 Sodium 136 mmol/L (136-145) 07/07/24 18:20 Potassium 4.2 mmol/L (3.5-5.1) 07/07/24 18:20 Chloride 104 mmol/L (98-107) 07/07/24 18:20 Carbon Dioxide 22 mmol/L (22-29) 07/07/24 18:20 Anion Gap 14.2 (5-19) 07/07/24 18:20 BUN 11 mg/dL (6-20) 07/07/24 18:20 Creatinine 0.5 mg/dL (0.5-0.9) 07/07/24 18:20 GFR Calculation 138.1 mL/min (90-130) H 07/07/24 18:20 Glucose 98 mg/dL (65-115) 07/07/24 18:20 Calculated Osmolality 281 mOsm/kg (285-295) L 07/07/24 18:20 Calcium 8.2 mg/dL (8.5-10.5) L 07/07/24 18:20 Total Bilirubin 0.2 mg/dL (0.15-1.2) 07/07/24 18:20 AST 19 U/L (0-32) 07/07/24 18:20 ALT 26 U/L (0-33) 07/07/24 18:20 Alkaline Phosphatase 85 U/L (35-105) 07/07/24 18:20 Troponin T Baseline < 6 ng/L (0-10) 07/07/24 18:20 Total Protein 5.9 g/dL (6.6-8.7) L 07/07/24 18:20 Albumin 3.7 g/dL (3.5-5.2) 07/07/24 18:20 Globulin 2.2 g/dL (1.3-4.6) 07/07/24 18:20 TSH 1.92 uIU/mL (0.27-4.20) 07/07/24 18:20 HCG, Qual Negative (Negative) 07/07/24 18:20 All radiology interpretation(s) finalized by discharge Discharge Plan Discharge Patient Disposition: Home Clinical Impression: Cervical radiculopathy, Palpitations Condition: Stable Prescriptions: New cyclobenzaprine 10 mg tablet 10 mg PO Q8H PRN (Reason: muscle spasm) Qty: 20 0RF dexamethasone 6 mg tablet 6 mg PO DAILY 5 Days Qty: 5 0RF No Action magnesium citrate Solution 300 ml PO DAILY PRN (Reason: constipation) Qty: 296 0RF Discharge Orders: Discharge ED (Routine); Ordered 07/07/24 Ordered By: Mirtha Morejon Referrals: Penelope Almanza FNP [Primary Care Provider] - Patient Instructions: Opioid Safety, Pain Management Activity Restrictions/Additional Instructions: Thank you for choosing [facility] for your healthcare needs today. Please realize this is an emergency room and that we are providing you with a medical screening exam and this may not be complete and all inclusive of all the testing and or work up that you may need to determine your ailment or severity of your illness. You have been screened and evaluated and felt safe for discharge. Health conditions do change or evolve sometimes and as such it is important that you follow up with your Primary Doctor to be re checked, 3-5 days is a general good time frame for follow up. You are always welcome to return to the ED for re assessment if your symptoms are worsening or you have new concerns Coding Level of Care Code ED Art Museum Aide for Fernanda Poon
[2024-07-07 18:37] LABS: Basophils % 0.4 %; Eosinophils # 0.1 10^3/uL (0.0-0.8); Eosinophils % 1.2 %; Hematocrit 39.3 % (36-47); Lymphocytes # 4.2 10^3/uL (0.8-4.8); Lymphocytes % 36.8 %; Mean Corpuscular HGB Conc 33.3 g/dL (30-55); Mean Corpuscular Hemoglobin 32.3 pg (27-33); Mean Platelet Volume 9.6 fL (7.4-10.4); Monocytes # 0.8 10^3/uL (0.2-0.9); Neutrophils # 6.17 10^3/uL (1.8-7.7); Neutrophils % 54.4 %; Nucleated Red Blood Cells % 0 %; Platelet Count 232 10^3/cmm (157-399); Red Blood Count 4.05 10^6/uL (3.85-5.65); Red Cell Distribution Width 13.2 % (12.1-15.1); White Blood Count 11.35 10^3/uL (3.29-11.43)
[2024-07-07 18:49] VITALS: PULSE 87; O2SAT 98
[2024-07-07 19:00] VITALS: BP 100/62; PULSE 77; RESP 18; O2SAT 98
[2024-07-07 19:07] LABS: HCG, Serum Qual Negative (Negative)
[2024-07-07 19:13] LABS: Alanine Aminotransferase 26 U/L (0-33); Albumin Level 3.7 g/dL (3.5-5.2); Alkaline Phosphatase 85 U/L (35-105); Blood Urea Nitrogen 11 mg/dL (6-20); Calcium 8.2 mg/dL (8.5-10.5); Carbon Dioxide 22 mmol/L (22-29); Chloride 104 mmol/L (98-107); Creatinine Clr Calc Pharmacy 135.8464; Globulin 2.2 g/dL (1.3-4.6); Glomerular Filtration Rate 138.1 mL/min (90-130); Glucose 98 mg/dL (65-115); Osmolality Calculated 281 mOsm/kg (285-295); Sodium 136 mmol/L (136-145); Thyroid Stimulating Hormone 1.92 uIU/mL (0.27-4.20); Total Bilirubin 0.2 mg/dL (0.15-1.2); Total Protein 5.9 g/dL (6.6-8.7)
[2024-07-07 19:19] LABS: Anion Gap 14.2 (5-19); Aspartate Amino Transferase 19 U/L (0-32); Potassium 4.2 mmol/L (3.5-5.1)
[2024-07-07 19:26] LABS: Troponin(5th) Baseline < 6 ng/L (0-10)
[2024-07-07 19:30] VITALS: BP 108/62; PULSE 74; RESP 17; O2SAT 98
[2024-07-07] MEDS: dexamethasone 10 mg/mL INJ IM (20:03)
[2024-07-07 20:12] VITALS: BP 116/63; PULSE 81; O2SAT 97
== END 2024-07-07 20:08 | disposition home or self-care (01) ==
PROVIDERS: Emergency Medicine; Emergency Provider Emergency Medicine; PCP Nurse Practitioner
DX: M54.12 Radiculopathy, cervical region (principal); R00.2 Palpitations; Z72.0 Tobacco use
CPT/HCPCS: 36415; 70450; 72125; 80053; 84443; 84484; 84703; 85025; 93005; 96372; 99284; J1100

== ENCOUNTER 2024-09-23 16:45 | Emergency (ER) | payer SELFPAY ==
--- NOTE | 2024-09-23 16:46 | XRR_ITS ---
PROCEDURE INFORMATION: Exam: XR Left Hand Exam date and time: 09/23/2024 5:26 PM Age: 38 years old Clinical indication: Injury or trauma; Other: Thorn in pinky; Laceration; Left; Little finger TECHNIQUE: Imaging protocol: Radiologic exam of the left hand. Views: 3 or more views. COMPARISON: No relevant prior studies available. FINDINGS: Bones/joints: No definite acute osseous abnormality. Soft tissues: Soft tissue swelling surrounding the knee joint concerning for infectious/inflammatory process. Other findings: Please note that organic matter foreign body is usually radio lucent on radiographs. XR/XR hand LT min 3V* [id number] IMPRESSION: As above.
[2024-09-23 17:13] VITALS: BP 134/91; PULSE 89; RESP 17; TEMP 36.6; O2SAT 98; BMI 24.0
[2024-09-23] MEDS: lidocaine 2% INJ 20 mL 10 ML INJECTION (18:12)
[2024-09-23] MEDS: cefTRIAXone 1,000 MG in water for injection-sterile 2.1 ML 2.1 MG IM (18:28)
--- NOTE | 2024-09-23 18:42 | ED_ITS ---
HPI - Skin/Abscess/Foreign Bdy General: Chief complaint: Skin/Abscess/Foreign Body Stated complaint: lt pinkie inj Time Seen by Provider: 09/23/24 17:21 Source: patient Mode of arrival: ambulatory Limitations: no limitations History of Present Illness: Patient is a 38-year-old female presents emergency department with left pinky pain and swelling over the past few days. Patient states she got a piece of thorn stuck in her finger, she was unable to retrieve it and it has festered. Denies any red streaking or fevers. Denies any other systemic signs of illness. States her tetanus is up-to-date. She notes that the tip of her pinky has gotten more swollen and has started to drain purulent material. No other concerning symptoms reported at this time. MD complaint: lesion (Pain and swelling to left pinky) Onset (ago): day(s) Tetanus up to date: yes Location: L hand Severity: moderate Severity scale (1-10): 10 Quality: sharp Pain Consistency: constant Context: other (Thorn stuck in pinky) Associated symptoms: Deny chills, fever(s), nausea or vomiting Treatments prior to arrival: none Related Data Previous Rx's Medication Instructions Recorded magnesium citrate 300 ml PO DAILY PRN constipation 11/14/19 #296 mL cyclobenzaprine 10 mg tablet 10 mg PO Q8H PRN muscle spasm #20 07/07/24 tabs clindamycin HCl 300 mg capsule 300 mg PO BID 7 days #14 caps 09/23/24 Allergies Allergy/AdvReac Type Severity Reaction Status Date / Time No Known Allergies Allergy Verified 09/23/24 17:15 Review of Systems General: Reports: 10 or more systems reviewed and unremarkable except in HPI and below Const: Denies: fever(s) or chills Card: Denies: chest pain Resp: Denies: dyspnea GI: Denies: abdominal pain, nausea, vomiting or diarrhea Musc: Reports: extremity pain (Left pinky) and extremity swelling (Left pinky); Denies: joint pain Skin/Breast: Reports: skin pain, skin tenderness and new lesions; Denies: rash Neuro: Denies: headache(s) PFS ED PFSH: Social History Smoking and tobacco/nicotine status: current every day tobacco/nicotine user Physical Exam Const: COMMON NORMALS: average body habitus, patient oriented x3, no limitations, healthy appearing, alert and well nourished GENERAL APPEARANCE: anxious HENMT: COMMON NORMALS: normocephalic and atraumatic HEAD & SCALP: normocep halic and atraumatic Neck/C-Spine: COMMON NORMALS: full ROM, no lymphadenopathy, supple and no meningeal signs Resp: COMMON NORMALS: normal respiratory effort, No use of accessory muscles and clear to auscultation bilaterally AUSCULTATION: clear to auscultation arleth aterally Cardio: COMMON NORMALS: regular rate and regular rhythm RATE: regular rate RHYTHM: regular rhythm Extremity: COMMON NORMALS: full ROM and capillary refill normal NARRATIVE EXTREMITY EXAM: There is redness swelling and evidence of purulence to finger pad of left pinky finger. Severe tenderness to palpation to this area. Evidence of paronychia as well. No red streaking of the left hand or finger. Range of motion intact. No distal sensory changes. Neuro: COMMON NORMALS: patient oriented x3 SENSORIUM/ORIENTATION: Yes alert MENINGEAL SIGNS: Yes no meningeal signs Skin: COMMON NORMALS: turgor normal GENERAL SKIN EXAM: turgor normal Procedures Abscess I/D Site: hand Side (if applicable): left Technique: needle aspiration and incised with #11 blade Amount of fluid expressed (mL): 1 Packing used?: none Complications: pain Foreign Body Removal Site: left and hand Description of foreign body: other (Foreign) Technique: manual removal Confirmed by:: direct visualization Complications: none Post-procedure exam: awake, alert Nerve Block Nerve Block 1: Time out performed: Yes Local Anesthetic: lidocaine 2% Amount of anesthesia used (mL): 5 Side: left Nerve Blocks: digital Procedure Successful: Yes Patient Tolerated Procedure: well Complications: pain with procedure Course Vital Signs: Vital signs: Vital Signs Temperature 97.9 F 09/23/24 17:13 Pulse Rate 89 09/23/24 17:13 Respiratory Rate 17 09/23/24 17:13 Blood Pressure 134/91 09/23/24 17:13 Pulse Oximetry 98 09/23/24 17:13 Oxygen Delivery Me thod Room Air 09/23/24 17:13 MDM - Skin/Abscess/Foreign Bdy Medicial Decision Making Patient presented with lesion to left pinky finger. There was a paronychia, this was incised after digital block and purulence expressed. The main lesion did have an area of a central black foreign body, this was removed and did appear to be part of the thorn. Multiple attempts were made and minor incisions to express any more purulence, and wound was thoroughly cleaned. Patient will b e started on clindamycin and refer to orthopedics to make sure that the wound is healing, x-ray did not show any involvement to the bone and only soft tissue. Clinically there was no red streaking and she had no systemic symptoms of illness. She is given a shot of ceftriaxone here in the emergency department, her tetanus was up-to-date. General return precautions given, patient endorsed understanding. Lab Data Radiology Impressions Hand X-Ray 09/23/24 16:46 IMPRESSION: As above. All radiology interpretation(s) finalized by discharge Discharge Plan Discharge Patient Disposition: Home Clinical Impression: Cellulitis Condition: Stable Prescriptions: New clindamycin HCl 300 mg capsule 300 mg PO BID 7 Days Qty: 14 0RF No Action magnesium citrate Solution 300 ml PO DAILY PRN (Reason: constipation) Qty: 296 0RF cyclobenzaprine 10 mg tablet 10 mg PO Q8H PRN (Reason: muscle spasm) Qty: 20 0RF Discharge Orders: Discharge ED (Routine); Ordered 09/23/24 Ordered By: Hira Huston Patient Instructions: Cellulitis (ED) Activity Restrictions/Additional Instructions: Please take antibiotics as prescribed. Wound care has been discussed, keep the wound dry and covered. When cleaning, use warm soap and water. Please follow- up with orthopedics. Please return with any fevers, red streaking, or other concerns you have. Coding Level of Care Code ED Chemist Steroids for Fernanda Poon
[2024-09-23 18:51] VITALS: BP 109/75; PULSE 83; O2SAT 97
--- NOTE | 2024-09-24 19:16 | DCPLANNER ---
Message sent to Ortho for follow up
== END 2024-09-23 18:50 | disposition home or self-care (01) ==
PROVIDERS: Emergency Provider Physician Assistant
DX: L03.012 Cellulitis of left finger (principal); Z72.0 Tobacco use
CPT/HCPCS: 26010; 73130; 96372; 99284; J0696

== ENCOUNTER 2025-04-20 09:12 | Emergency (ER) | payer OTHER, SELFPAY ==
[2025-04-20 09:31] VITALS: BP 109/60; PULSE 84; TEMP 36.9; O2SAT 100
--- NOTE | 2025-04-20 09:36 | ECG_ITS ---
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 Measurements Intervals [place] Rate: 83 P: 62 MS: 165 QRS: 32 QRSD: 82 T: 63 QT: 364 QTc: 429 Interpretive Statements SINUS RHYTHM Compared to ECG 07/07/2024 15:40:25 No significant changes Electronically Signed On 04-21-2025 08:08:34 CDT by Merary Nieves M.D. [email or web address] [id number]
--- NOTE | 2025-04-20 11:21 | XRR_ITS ---
PROCEDURE INFORMATION: Exam: XR Chest Exam date and time: 04/20/2025 11:35 AM Age: 39 years old Clinical indication: Cough; Additional info: Luq pain/cough TECHNIQUE: Imaging protocol: Radiologic exam of the chest. Views: 1 view. COMPARISON: CR XR chest 1V portable [id number] 09/27/2019 11:43 AM FINDINGS: Lungs: Unremarkable. No consolidation. Pleural spaces: Unremarkable. No pleural effusion. No pneumothorax. Heart/Mediastinum: Unremarkable. No cardiomegaly. Bones/joints: Unremarkable. XR/XR chest 1V portable [id number] IMPRESSION: No acute findings.
[2025-04-20 11:41] LABS: Hematocrit 44.2 % (36-47); Hemoglobin 14.20 g/dL (11.27-16.99); Mean Corpuscular HGB Conc 32.1 g/dL (30-55); Mean Corpuscular Hemoglobin 31.3 pg (27-33); Mean Corpuscular Volume 97.4 fl (85-98); Nucleated Red Blood Cells % 0 %; Platelet Count 308 10^3/cmm (157-399); Red Blood Count 4.54 10^6/uL (3.85-5.65); White Blood Count 9.59 10^3/uL (3.29-11.43)
--- NOTE | 2025-04-20 11:41 | ED_ITS ---
HPI - Back Pain/Injury 2 General: Chief Complaint: Abdominal Pain Stated Complaint: L side rib pain, congestion, SAAVEDRA, fever Time Seen by Provider: 04/20/25 09:27 Source: patient Mode of arrival: ambulatory Limitations: no limitations History of Present Illness: Patient is a 39-year-old female who presents to ED today with a complaint of left-sided back and abdominal pain beginning yesterday. She feels like pain is located to her left lateral side. She feels like pain is worse with movement and things like coughing. She does have a history of kidney stones. No known injury or trauma. She has felt a little nauseous but has not had any episodes of emesis. She has some degree of mild constipation. No fevers. No rash. She has had URI symptoms/cough for approximately a month. She is an everyday smoker. She is not complaining of chest pain or feeling short of breath. MD elicited complaint: back pain Onset (ago): day(s) Timing: constant Severity: severe Similar Symptoms Previously: No Location: left flank Radiation: abdomen Exacerbating factors: movement Relieving factors: none Associated symptoms: Reports abdominal pain; Deny chills, change in bowel habits, dysuria, fatigue, fever(s), nausea, syncope, urinary urgency or vomiting Work related injury: No Related Data Previous Rx's ?Medication ?Instructions ?Recorded magnesium citrate 300 ml PO DAILY PRN constipa tion 11/14/19 #296 mL cyclobenzaprine 10 mg tablet 10 mg PO Q8H PRN muscle s pasm #20 07/07/24 tabs ciprofloxacin HCl 500 mg tablet 500 mg PO Q12H #14 tab s 04/20/25 (Cipro) Allergies Allergy/AdvReac Type Severity Reaction Status Date / Time No Known Allergies Allergy Verified 04/20/25 09:36 Review of Systems 2 Const: Denies: fever(s), chills, body aches, fatigue or malaise Card: Denies: chest pain, palpitations, irregular heart rhythm, edema, swelling of feet/ankles, lightheadedness, syncope, pre-syncope, dyspnea on exertion or orthopnea Resp: Reports: non-productive cough; Denies: dyspnea, wheezing, change in phlegm color or hemoptysis GI: Reports: abdominal pain; Denies: nausea, vomiting, diarrhea or change in bowel habits : Denies: flank pain, difficulty voiding, dysuria, urinary frequency, urinary urgency or urinary hesitancy Musc: Reports: back pain; Denies: neck pain, extremity pain, extremity swelling, joint pain, joint swelling or joint redness Skin/Breast: Denies: rash Neuro: Denies: headache(s), numbness in extremities, weakness in extremities, sensory changes or dizziness PFSH ED 2 PFSH: Social History Smoking and tobacco/nicotine status: current every day tobacco/nicotine user Physical Exam 2 Const: COMMON NORMALS: no acute distress, average body habitus, patient oriented x3, no limitations, healthy appearing, alert and well nourished G ENERAL APPEARANCE: cooperative ORIENTATION/CONSCIOUSNESS: Yes awake, Yes oriented to person, Yes oriented to place and Yes oriented to time Eye: COMMON NORMALS: no scleral icterus Neck/C-Spine: COMMON NORMALS: full ROM, no lymphadenopathy and no meningeal signs GENERAL: Yes normal visual inspection Resp: COMMON NORMALS: normal respiratory effort and clear to auscultation bilaterally AUSCULTATION: clear to auscultation bilaterally Cardio: COMMON NORMALS: regular rate and regular rhythm RATE: regular rate RHYTHM: regular rhythm GI: COMMON NORMALS: Normal to inspection, nondistended, normoactive bowel sounds present, Soft to palpation, No hepatosplenomegaly present and no masses INSPECTION: Yes normal to inspection AUSCULTATION: Yes normoactive bowel sounds PALPATION: Yes Soft to palpation, Yes Tenderness to palpation present (GI) (LUQ), No Guarding due to palpation present (GI), No Rigid due to palpation and Yes No hepatosplenomegaly present OTHER: TTP L lateral abdomen : BLADDER/KIDNEY EXAM: Yes CVA tenderness on the left (below L CVA) Back/Pelvis: COMMON NORMALS: thoracic and lumbar spine normal to inspection, no thoracic nor lumbar tenderness, thoraco-lumbar ROM normal and straight leg raise negative bilaterally GENERAL BACK: Yes CVA tenderness Extremity: GENERAL: Yes normal exam except as noted Neuro: ASA COMA SCALE: document GCS findings [place] coma scale eye opening: Spontaneous Asa coma scale verbal response: Orientated Asa coma scale motor response: Obey commands [place] coma scale total score: 15 COMMON NORMALS: patient oriented x3, CN's II-XII intact bilaterally, moves all extremities, no focal motor deficits, no sensory deficits noted and gait normal SENSORIUM/ORIENTATION: Yes alert, Yes oriented to person, Yes oriented to place and Yes oriented to time MENINGEAL SIGNS: Yes no meningeal signs Skin: COMMON NORMALS: no rashes or lesions noted GENERAL SKIN EXAM: no rashes or lesions noted Course 2 Vital Signs: Vital signs: Vital Signs Temperature 98.4 F 04/20/25 09:31 Pulse Rate 78 04/20/25 12:41 Blood Pressure 109/65 04/20/25 12:03 Pulse Oximetry 100 04/20/25 12:41 Oxygen Delivery Me thod Room Air 04/20/25 12:41 MDM - Back Pain/Injury Medical Decision Making Patient's vital signs are stable. Blood work showing a normal white count. Chemistry panel is unremarkable. is negative. UA suspicious for cystitis with a cloudy appearance, 2+ leukocyte esterase, and 51-100 WBCs. She did have contaminant present. Based on her symptoms, we will go ahead and cover for ascending infection. 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 Remainder of scan was unremarkable. Some degree of mild constipation. Recommend follow-up with primary care later this week. Return to ED precautions discussed. Medical Records I reviewed the patient's medical records. Labs I reviewed the patient's lab results. 04/20/25 11:33 04/20/25 11:33 Radiology Impressions Chest X-Ray 04/20/25 11:21 IMPRESSION: No acute findings. Abdomen/Pelvis CT 04/20/25 11:57 IMPRESSION: 1. Medullary nephrocalcinosis. 2. No obstructing renal or ureteral calculi. 3. Normal appendix in the RIGHT lower quadrant. 4. RIGHT colon and transverse colon constipation. 5. Prior cholecystectomy. 6. Small fat-containing umbilical hernia Laboratory Results WBC 9.59 10^3/uL (3.29-11.43) 04/20/25 11:33 RBC 4.54 10^6/uL (3.85-5.65) 04/20/25 11:33 Hgb 14.20 g/dL (11.27-16.99) 04/20/25 11:33 Hct 44.2 % (36-47) 04/20/25 11:33 MCV 97.4 fl (85-98) 04/20/25 11:33 MCH 31.3 pg (27-33) 04/20/25 11:33 MCHC 32.1 g/dL (30-55) 04/20/25 11:33 RDW 13.2 % (12.1-15.1) 04/20/25 11:33 Plt Count 308 10^3/cmm (157-399) 04/20/25 11:33 MPV 9.4 fL (7.4-10.4) 04/20/25 11:33 Neut % (Auto) 56.4 % 04/20/25 11:33 Lymph % (Auto) 35.9 % 04/20/25 11:33 [place] % (Auto) 6.2 % 04/20/25 11:33 Eos % (Auto) 0.8 % 04/20/25 11:33 Baso % (Auto) 0.5 % 04/20/25 11:33 Neut # (Auto) 5.41 10^3/uL (1.8-7.7) 04/20/25 11:33 Lymph # (Auto) 3.4 10^3/uL (0.8-4.8) 04/20/25 11:33 Mercer # (Auto) 0.6 10^3/uL (0.2-0.9) 04/20/25 11:33 Eos # (Auto) 0.1 10^3/uL (0.0-0.8) 04/20/25 11:33 Baso # (Auto) 0.1 10^3/uL (0.0-0.1) 04/20/25 11:33 Nucleated RBC % (auto) 0 % 04/20/25 11:33 Nucleated RBCs # 0.0 /100WBC 04/20/25 11:33 Sodium 137 mmol/L (136-145) 04/20/25 11:33 Potassium 4.4 mmol/L (3.5-5.1) 04/20/25 11:33 Chloride 101 mmol/L (98-107) 04/20/25 11:33 Carbon Dioxide 25 mmol/L (22-29) 04/20/25 11:33 Anion Gap 15.4 (5-19) 04/20/25 11:33 BUN 8 mg/dL (6-20) 04/20/25 11:33 Creatinine 0.5 mg/dL (0.5-0.9) 04/20/25 11:33 GFR Calculation 137.4 mL/min (90-130) H 04/20/25 11:33 Glucose 94 mg/dL (65-115) 04/20/25 11:33 Calculated Osmolality 282 mOsm/kg (285-295) L 04/20/25 11:33 Calcium 9.0 mg/dL (8.5-10.5) 04/20/25 11:33 Total Bilirubin 0.3 mg/dL (0.15-1.2) 04/20/25 11:33 AST 16 U/L (0-32) 04/20/25 11:33 ALT 11 U/L (0-33) 04/20/25 11:33 Alkaline Phosphatase 77 U/L (35-105) 04/20/25 11:33 Total Protein 7.6 g/dL (6.6-8.7) 04/20/25 11:33 Albumin 4.0 g/dL (3.5-5.2) 04/20/25 11:33 Globulin 3.6 g/dL (1.3-4.6) 04/20/25 11:33 Lipase 45 U/L (13-60) 04/20/25 11:33 HCG, Qual Negative (Negative) 04/20/25 11:33 Urine Color Yellow (Yellow) 04/20/25 11:58 Urine Appearance Cloudy (CLEAR) A 04/20/25 11:58 Urine pH 6.5 (5-7) 04/20/25 11:58 Ur Specific [place] 1.022 (1.005-1.030) 04/20/25 11:58 Urine Protein Negative (Negative) 04/20/25 11:58 Urine Glucose (UA) Negative (Normal) 04/20/25 11:58 Urine Ketones Trace (Negative) 04/20/25 11:58 Urine Blood Negative (Negative) 04/20/25 11:58 Urine Nitrate Negative (Negative) 04/20/25 11:58 Urine Bilirubin Negative (Negative) 04/20/25 11:58 Urine Urobilinogen 1.0 mg/dL (Negative) 04/20/25 11:58 Ur Leukocyte Esterase 2+ (Negative) A 04/20/25 11:58 Urine RBC 0-2 /hpf (0-2) 04/20/25 11:58 Urine WBC 51-100 /hpf (0-5) H 04/20/25 11:58 Ur Squamous Epith Cells 11-20 /hpf (0-5) H 04/20/25 11:58 Amorphous Sediment Not Reportable 04/20/25 11:58 Urine Bacteria 1+ /hpf (NONE) H 04/20/25 11:58 Hyaline Casts 0.40 /lpf 04/20/25 11:58 All radiology interpretation(s) finalized by discharge Discharge Plan Discharge Patient Disposition: Home Clinical Impression: Acute cystitis Qualifiers: Hematuria presence: without hematuria Qualified Code(s): N30.00 - Acute cystitis without hematuria Condition: Stable Prescriptions: New ciprofloxacin HCl [Cipro] 500 mg tablet 500 mg PO Q12H Qty: 14 0RF No Action magnesium citrate Solution 300 ml PO DAILY PRN (Reason: constipation) Qty: 296 0RF cyclobenzaprine 10 mg tablet 10 mg PO Q8H PRN (Reason: muscle spasm) Qty: 20 0RF Discharge Orders: Discharge ED (Routine); Ordered 04/20/25 Ordered By: Teetee Berman Patient Instructions: Patient Portal & Alison Instructions Activity Restrictions/Additional Instructions: As we discussed, please follow-up with primary care later this week for reevaluation. You may return to the emergency department at anytime for worsening pain, fevers, repetitive episodes of vomiting, inability to tolerate your antibiotics, or any other concerns you may have. Print Language: Honduran Coding Level of Care Code ED [employer] Apprentice for Fernanda Poon
[2025-04-20 11:56] LABS: Alanine Aminotransferase 11 U/L (0-33); Albumin Level 4.0 g/dL (3.5-5.2); Alkaline Phosphatase 77 U/L (35-105); Aspartate Amino Transferase 16 U/L (0-32); Blood Urea Nitrogen 8 mg/dL (6-20); Calcium 9.0 mg/dL (8.5-10.5); Carbon Dioxide 25 mmol/L (22-29); Chloride 101 mmol/L (98-107); Creatinine Clr Calc Pharmacy 136.6780; Globulin 3.6 g/dL (1.3-4.6); Glucose 94 mg/dL (65-115); Lipase 45 U/L (13-60); Osmolality Calculated 282 mOsm/kg (285-295); Sodium 137 mmol/L (136-145); Total Protein 7.6 g/dL (6.6-8.7)
--- NOTE | 2025-04-20 11:57 | CT_ITS ---
WS: [id number] CT ABDOMEN PELVIS TECHNIQUE: Noncontrast CT of the abdomen and pelvis with coronal and sagittal reformatted images. CLINICAL INFORMATION: L back/LUQ abdominal pain COMPARISON: None. DLP: 339.[address] scans at [facility] use at least one of these dose optimization techniques: automated exposure control; mA and/or kV adjustment per patient size (includes targeted exams where dose is matched to clinical indication); or iterative reconstruction. FINDINGS: Prior cholecystectomy. Medullary nephrocalcinosis. No hydronephrosis in either kidney. Normal noncontrast liver and spleen. Tiny esophageal hiatal hernia. Adrenal glands are normal. Normal noncontrast pancreas. Tiny fat-containing umbilical hernia. Lung bases are well aerated. No obstructing renal or ureteral calculi. Fecal retention in the transverse colon and RIGHT colon. Physiologic Multi follicular ovaries bilaterally. Bladder is decompressed. Disc narrowing worse at L4-L5 and L5-S1. CT/CT kidney stone [id number] IMPRESSION: 1. Medullary nephrocalcinosis. 2. No obstructing renal or ureteral calculi. 3. Normal appendix in the RIGHT lower quadrant. 4. RIGHT colon and transverse colon constipation. 5. Prior cholecystectomy. 6. Small fat-containing umbilical hernia
[2025-04-20 12:03] VITALS: BP 109/65; PULSE 88; O2SAT 100
[2025-04-20 12:12] LABS: Glucose Urine UA Negative (Normal); Nitrate Urine Negative (Negative); Specific Gravity, Urine 1.022 (1.005-1.030)
[2025-04-20 12:14] LABS: Add Urine Microscopic? YES
[2025-04-20 12:14] LABS: Anion Gap 15.4 (5-19); Potassium 4.4 mmol/L (3.5-5.1)
[2025-04-20] MEDS: ondansetron 2 mg/ML SDV 2 mL 4 MG IVP (12:17)
[2025-04-20 12:41] VITALS: PULSE 78; O2SAT 100
[2025-04-20 13:41] LABS: HCG, Serum Qual Negative (Negative)
[2025-04-20 13:51] VITALS: BP 112/80; PULSE 79; O2SAT 100
== END 2025-04-20 13:52 | disposition home or self-care (01) ==
PROVIDERS: Emergency Provider Physician Assistant
DX: N30.00 Acute cystitis without hematuria (principal)
CPT/HCPCS: 36415; 71045; 74176; 80053; 81001; 83690; 84703; 85025; 93005; 96374; 96375; 99285; J1885; J2405